=== PATIENT | male | born 1955 | race Caucasian/White ===

== ENCOUNTER 2018-11-17 07:53 | Day surgery (SDC) | payer BC ==
[~2018-11-17 07:53] MED LIST: Lactated Ringers 1,000 ML IV SCH
[2018-11-17] MEDS ORDERED: Propofol 200 MG/20 ML SDV ONE ×2 (09:09→09:46)
[2018-11-17] MEDS ORDERED: fentaNYL 100 MCG/2 ML SDV ONE (09:35)
--- NOTE | 2018-11-17 10:36 | OR ---
PREOPERATIVE DIAGNOSIS: Screening colonoscopy. POSTOPERATIVE DIAGNOSIS: Sigmoid diverticulosis, anal polyp. PROCEDURE PROPOSED: Total flexible colonoscopy. PROCEDURE DONE: Total flexible colonoscopy with hot snare polypectomy x1. INDICATION: This is a 63-year-old gentleman who comes in for screening colonoscopy. He denies any symptomatology. He has a negative family history for any colon cancer. However, he states his brother had some type of bowel issue and he does not know what it was. TECHNIQUE: The patient was brought to the endoscopy suite, placed in left lateral decubitus position. He was sedated per [employer] with propofol. The flexible video colonoscope was then passed transanally and under visualization advanced to the cecum. Examination revealed a normal ascending, transverse, and descending colon. Sigmoid colon revealed [id number] diverticulosis. The rectum was normal, but right in the anal canal, he had sort of an anal papilla, anal polyp-type lesion, that I was able to do a hot snare removal with and retrieved it for pathologic examination measuring about 7 to 8 mm in size. He tolerated the procedure well, was taken back to [facility] in good condition. FINAL IMPRESSION: 1. Sigmoid diverticulosis. 2. Anal polyp removed. PLAN: He will be sent a letter with pathology report, and I will let him know in the letter when I feel his next examination is needed. SCM: 11/17/2018 10:03:10 MODL: 11/17/2018 10:27:31 /[id number]
== END 2018-11-17 11:10 | disposition home or self-care (01) ==
LOC: VM.SDS 07:53
PROVIDERS: ATTEND Surgery
DX: Z12.11 Encounter for screening for malignant neoplasm of colon (principal); K64.4 Residual hemorrhoidal skin tags; K57.30 Diverticulosis of large intestine without perforation or abscess without bleeding; I10 Essential (primary) hypertension; E66.9 Obesity, unspecified; Z68.38 Body mass index [BMI] 38.0-38.9, adult; E78.2 Mixed hyperlipidemia; E03.9 Hypothyroidism, unspecified; Z79.890 Hormone replacement therapy; Z79.899 Other long term (current) drug therapy; Z88.8 Allergy status to other drugs, medicaments and biological substances
CPT/HCPCS: J2704; J3010; J7120